=== PATIENT | male | born 1990 | race African-American/Black ===

== ENCOUNTER 2017-01-07 15:59 | Emergency (ER) | payer BC ==
[2017-01-07 16:04] VITALS: BP 119/77
--- NOTE | 2017-01-07 16:59 | RAD ---
HISTORY: Right posterior elbow injury, laceration COMPARISONS: None VIEWS: 4, Frontal, lateral, and oblique views of the right elbow FINDINGS: BONE DENSITY: Normal. BONES: There is no displaced fracture. JOINTS: There is no arthropathy. There is no posterior supracondylar fat pad to suggest a joint effusion. ALIGNMENT: There is no dislocation. SOFT TISSUES: Unremarkable. OTHER FINDINGS: None. IMPRESSION: NO ACUTE OSSEOUS INJURY. IF SYMPTOMS PERSIST, RECOMMEND REPEAT IMAGING.
--- NOTE | 2017-01-07 17:15 | ED ---
Laceration/Wound HPI - HPI Summary HPI Summary: 26 male presents complaining of an elbow laceration and injury after falling while skateboarding today 01/07/17 just [employer]. Patient states he fell directly on his elbows but mainly the right one and sustained a laceration. He was wearing a helmet and did not his head or lose consciousness. He has not complaints of shoulder, wrist or hand pain. He denies numbness/tingling, and weakness. It is painful upon movement. Denies nausea, lightheadedness, chest pain and difficulty breathing. - History of Current Complaint Stated Complaint: RIGHT ELBOW LACERATION Time Seen by Provider: 01/07/17 16:12 Hx Obtained From: Patient Mechanism of Injury: Other - blunt trauma falling onto concrete Aggravating: Movement Alleviating: Nothing Timing: Constant Onset Severity: Mild Current Severity: Mild Pain Intensity: 5 Pain Scale Used: 0-10 Numeric Associated Signs & Symptoms: Pain, Joint Swelling Related Hx: Dominant Hand (Right) - Allergy/Home Medications Allergies/Adverse Reactions: Allergies Allergy/AdvReac Type Severity Reaction Status Date / Time No Known Allergies Allergy Verified 01/07/17 18:22 PMH/Surg Hx/FS Hx/Imm Hx Endocrine/Hematology History: Denies: Hx Anemia Cardiovascular History: Denies: Hx Hypertension Respiratory History: Denies: Hx Asthma - Surgical History Surgery Procedure, Year, and Place: none - Immunization History Immunizations Up to Date: Yes Infectious Disease History: No Infectious Disease History: Denies: Traveled Outside the [place] in Last 30 Days - Family History Known Family History: Positive: None - Social History Alcohol Use: Occasionally Substance Use Type: Reports: None Smoking Status (MU): Never Smoked Tobacco Review of Systems Constitutional: Negative Cardiovascular: Negative Respiratory: Negative Gastrointestinal: Negative Positive: Arthralgia, Myalgia, Edema - right elbow Positive: Other - laceration Neurological: Negative Psychological: Normal All Other Systems Reviewed And Are Negative: Yes Physical Exam Triage Information Reviewed: Yes Vital Signs On Initial Exam: Initial Vitals Temp Pulse Resp BP Pulse Ox 97.8 F 97 16 119/77 98 01/07/17 16:01 01/07/17 16:01 01/07/17 16:01 01/07/17 16:01 01/07/17 16:01 Vital Signs Reviewed: Yes Appearance: Positive: Well-Appearing, No Pain Distress, Well-Nourished Skin: Positive: Warm, Skin Color Reflects Adequate Perfusion - <2 second cap refill, Dry, Erythema @ - at right elbow, laceration of ~ 2cm y-shape just over medial epicondyle through SQ. no exposed bone or tendon observed. however may have disturbed bursa. sensation intact. full ROM Head/Face: Positive: Normal Head/Face Inspection Eyes: Positive: Normal ENT: Positive: Hearing grossly normal Neck: Positive: Supple, Nontender Respiratory/Lung Sounds: Positive: Clear to Auscultation, Breath Sounds Present Cardiovascular: Positive: Normal, RRR, Pulses are Symmetrical in both Upper and Lower Extremities - 2+ radial Musculoskeletal: Positive: Normal, Strength/ROM Intact, Pain @ - right elbow, Edema Right - mild edema at right elbow. laceration of Y shape 3 cm deep and 2 cm wide. Neurological: Positive: Normal, Sensory/Motor Intact, Alert, Oriented to Person Place, Time, CN Intact II-III, Reflexes Intact, NV Bundle Intact Distally, Normal Gait Psychiatric: Positive: Normal Procedures - Laceration/Wound Repair 1 Location: upper extremity - right elbow Description: Irregular - y- shaped Anesthesia: Local, 1.0%, Lido, Epi Length, Depth and Shape: 2 cm long, through SQ layer Irrigated w/ Saline (ccs): 50 Laceration/Wound Explored: clean Closure: Multilayer - 1 absorbable polysorb SQ suture, 5 simple interrupted 4-0 polypropylene Suture Type: Prolene - 4-0, Other - polysorb 4-0 Number of Sutures: 6 - 1 absorbable SQ and 5 simple interrupted Layer Closure?: Yes Diagnostics - Vital Signs Vital Signs Temp Pulse Resp BP Pulse Ox 01/07/17 16:01 97.8 F 97 16 119/77 98 - Laboratory Lab Statement: Any lab studies that have been ordered have been reviewed, and results considered in the medical decision making process. - Radiology right elbow Xray Interpretation: No Acute Changes - NO ACUTE OSSEOUS INJURY. IF SYMPTOMS PERSIST, RECOMMEND REPEAT IMAGING. Radiology Interpretation Completed By: Radiologist Laceration Repair Course/Dx - Course Course Of Treatment: xray obtained of right elbow and negative at this time. elbow was sutured using sterile procedure without complication. well- approximated. given ibuprofen for pain while in ED. told to continue ibuprofen as needed at home. rest and elevate to help with the swelling. told to keep clean and dry. given extra dressing to take home with him. aware of worsening signs and symptoms to watch out for. - Differential Dx Differental Diagnoses: Abrasion, Avulsion, Fracture, Laceration, Tendon Laceration - Clinical Impression Provider Diagnoses: Laceration of elbow, right Discharge - Discharge Plan Condition: Stable Disposition: HOME Patient Education Materials: Care For Your Stitches (ED), Laceration (ED) Referrals: [facility] [place] [facility] [Outside] Additional Instructions: Take ibuprofen 400mg for pain for the next few days as it will be sore. Take with food. If you start developing signs of redness, swelling, fever/chills, numbness/tingling or unable to move your arm please seek medical attention promptly. Stitches should be removed in 10 days. Keep area clean and dry. You may cover with dressing for the next few days.
[2017-01-07] MEDS ORDERED: Ibuprofen TAB* 600 MG PO ONE (17:59)
== END 2017-01-07 19:55 | disposition home or self-care (01) ==
LOC: ED 15:59
DX: S51.011A Laceration without foreign body of right elbow, initial encounter (principal); W19.XXXA Unspecified fall, initial encounter; Y93.51 Activity, roller skating (inline) and skateboarding; Y92.9 Unspecified place or not applicable; Y99.9 Unspecified external cause status
CPT/HCPCS: 12002; 99281; A9270-GY